=== PATIENT | female | born 1965 | race Caucasian/White ===

== ENCOUNTER 2019-11-20 01:52 | Emergency (ER) | payer SELFPAY ==
[2019-11-20 01:53] VITALS: BP 169/102; PULSE 72; RESP 18; TEMP 36.4; O2SAT 98; BMI 22.8
[2019-11-20 02:11] VITALS: O2SAT 98
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
--- NOTE | 2019-11-20 03:07 | PC.NURSE ---
pt transported to ct by stretcher with tech
[2019-11-20 03:47] VITALS: BP 156/94; PULSE 73; O2SAT 98
[2019-11-20 04:10] VITALS: RESP 18
--- NOTE | 2019-11-20 05:03 | PC.NURSE ---
after bladder scan pt instructed to try and void. Pt states she dribbled and could not really go
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
[2019-11-20 06:22] VITALS: RESP 18
[2019-11-20] MEDS: HYDROmorphone 1 mg/mL INJ 1 mL 2 MG IM (06:22)
--- NOTE | 2019-11-20 06:30 | PC.NURSE ---
pt transported to MRI with EMS by stretcher.
[2019-11-20 08:06] VITALS: BP 152/83; PULSE 78; RESP 17; O2SAT 98
== END 2019-11-20 08:06 | disposition home or self-care (01) ==
PROVIDERS: Emergency Provider Emergency Medicine; PCP Internal Medicine
DX: S13.4XXA Sprain of ligaments of cervical spine, initial encounter (principal); M54.16 Radiculopathy, lumbar region; V89.2XXA Person injured in unspecified motor-vehicle accident, traffic, initial encounter
CPT/HCPCS: 51798; 72125; 72131; 72148; 96372; 99281; 99284; J1170